=== PATIENT | female | born 1965 | race Hispanic/Latino ===

== ENCOUNTER → 2018-06-25 | Day surgery (SDC) | payer BC ==
[~2018-06-25] MED LIST: ALLEGRA D PO; FENTANYL CITRATE/PF 100MCG/2 ML INJ ONE; IBUPROFEN200 MG PO; LIDOCAINE HCL 2% LOCAL INJ 5 ML SDV VIAL INJ ONE; LISINOPRIL10 MG PO; LORATADINE PO; MIDAZOLAM HCL 2 MG/2 ML VIAL ONE; PANTOPRAZOLE SO40 MG PO; PRAVACHOL40 MG PO; PROPOFOL IV EMULSION 10 MG/ML 50 ML VIAL ONE; SYNTHROID50 MCG PO; VICTOZA 2-0.6 MG/0.1 SQ
--- OUTSIDE RECORDS SUMMARY | 2018-06-25 07:36 | XMS REPORT ---
Author Author Yunier Ervin Organization [employer] Address Unknown Phone Unavailable Care Team Providers Care Paleobotanist Name Role Phone Yunier Ervin CP Unavailable Allergies No Known Allergies Problems Problem Type Condition Code Onset Dates Condition Status Problem OBIE (obstructive sleep apnea) G47.33 Active Medications No Known Medications Results No Known Results Summary Purpose [employer] Submission
--- OUTSIDE RECORDS SUMMARY | 2018-06-25 07:36 | XMS REPORT | Continuity of Care Document ---
Author Author [facility] Address Unknown Phone Unavailable Problems Problem Status Onset Date Classification Date Reported Comments Source OBIE Active Problem 02/28/2018 [facility] Chest tightness Active Diagnosis 02/22/2018 [facility] Palpitation Active Diagnosis 02/22/2018 [facility] Pre-operative clearance Active Diagnosis 02/22/2018 [facility] SOB Active Diagnosis 02/22/2018 [facility] Medications Medication Details Route Status Patient Instructions Ordering Provider Order Date Source LEVOTHYROXINE ONE TABLET NA Active 0.5 ONCE A DAY [facility] Metformin HCl 1 tablet with meals Orally Active 500 MG Orally Twice a day [facility] Allergies, Adverse Reactions, Alerts Substance Category Reaction Severity Reaction type Status Date Reported Comments Source N.K.D.A. Adverse Reaction Info Not Available Adverse Reaction Active 02/19/2018 [facility] Immunizations Immunization Date Given Site Status Last Updated Comments Source Results Order Name Results Value Reference Range Date Interpretation Comments Source Vital Signs Vital Sign Value Date Comments Source Weight 234.4 02/19/2018 [facility] Height 60 02/19/2018 [facility] Heart Rate 88 02/19/2018 [facility] Diastolic (mm Hg) 82 02/19/2018 [facility] Systolic (mm Hg) 142 02/19/2018 [facility] Encounters Location Location Details Encounter Type Encounter Number Reason For Visit Attending Provider ADM Date DC Date Status Source Procedures Procedure Code Date Perfomer Comments Source
--- OUTSIDE RECORDS SUMMARY | 2018-06-25 07:36 | XMS REPORT ---
Author Author Yunier Ervin Organization [employer] Address Unknown Phone Unavailable Care Team Providers Care Political Cartoonist Name Role Phone Yunier Ervin CP Unavailable Allergies, Adverse Reactions, Alerts Substance Reaction Event Type N.K.D.A. Info Not Available Non Drug Allergy Problems Problem Type Condition Code Onset Dates Condition Status Assessment Chest tightness R07.89 Active Assessment Palpitation R00.2 Active Problem OBIE (obstructive sleep apnea) G47.33 Active Assessment OBIE (obstructive sleep apnea) G47.33 Active Assessment Pre-operative clearance Z01.818 Active Assessment SOB (shortness of breath) R06.02 Active Medications Medication Code System Code Instructions Start Date End Date Status Dosage LEVOTHYROXINE NDC 0 0.5 ONCE A DAY Active ONE TABLET Metformin HCl NDC 12176905937 500 MG Orally Twice a day Active 1 tablet with meals Vital Signs Date/Time: February 19, 2018 BMI 45.77 Index Weight 234.4 lbs Height 60 in Cardiac Monitoring Heart Rate 88 /min Blood Pressure Diastolic 82 mm Hg Blood Pressure Systolic 142 mm Hg Results No Known Results Summary Purpose [employer] Submission
--- OUTSIDE RECORDS SUMMARY | 2018-06-25 07:36 | XMS REPORT | Clinical Summary ---
Author Author [facility] Organization [facility] Address Unknown Phone Unavailable Care Team Providers Care Warper Creeler Name Role Phone Rico Feliciano MD PCP Allergies Active Allergy Reactions Severity Noted Date Comments Pseudoephedrine Tannate Hives 01/30/2017 Fluticasone Itching 01/30/2017 Current Medications Prescription Sig. Disp. Refills Start End Date Status Date naproxen (NAPROSYN) 500 TAKE 1 TABLET (500 MG) BY 0 01/06/20 Active MG tablet MOUTH 2 TIMES PER DAY X 5 17 DAYS. metFORMIN (GLUCOPHAGE) Take 2 tablets (1,000 mg 120 tablet 3 01/31/20 01/31/20 500 mg tablet total) by mouth 2 (two) 17 18 times a day with meals. Active Problems Problem Noted Date Uncontrolled type 2 diabetes mellitus without complication, without 01/30/2017 long-term current use of insulin (HCC) Family History Medical History Relation Name Comments No Known Problems Brother No Known Problems Father Diabetes Maternal Grandmother Diabetes Mother Diabetes Sister No Known Problems Sister Relation Name Status Comments Brother Alive Father Alive Maternal Grandmother Alive Mother Alive Sister Alive Sister Alive Social History Tobacco Use Types Packs/Day Years Used Date Never Smoker Smokeless Tobacco: Never Used Alcohol Use Drinks/Week oz/Week Comments Yes Sex Assigned at Date Recorded Not on file Last Filed Vital Signs Not on file Plan of Treatment Health Maintenance Due Date Last Done Comments DIABETIC FOOT EXAM 01/23/1974 DIABETIC RETINAL EYE EXAM 01/23/1974 URINE MICROALBUMIN 01/23/1974 CERVICAL CANCER SCREENING 01/23/1985 BREAST CANCER SCREENING 01/23/2014 COLON CANCER SCREENING 01/23/2014 SHINGRIX VACCINE (#1) 01/23/2014 INFLUENZA VACCINE 04/09/2018 Results Not on fileafter 06/24/2017 Insurance Payer Benefit Subscriber ID Type Phone Address Plan / Group BCBS BCBS xxxxxxxxxxxx PPO CHOICE PPO/[employer] PPO
[2018-06-25 09:51] VITALS: BP 132/79
== END | disposition home or self-care (01) ==
LOC: OR 07:34
PROVIDERS: ATTEND Internal Medicine Gastroenterology
DX: K29.50 Unspecified chronic gastritis without bleeding (principal); K21.0 Gastro-esophageal reflux disease with esophagitis; K44.9 Diaphragmatic hernia without obstruction or gangrene; K57.30 Diverticulosis of large intestine without perforation or abscess without bleeding; K64.4 Residual hemorrhoidal skin tags; Z71.3 Dietary counseling and surveillance; E11.9 Type 2 diabetes mellitus without complications; E66.01 Morbid (severe) obesity due to excess calories; G47.33 Obstructive sleep apnea (adult) (pediatric); I10 Essential (primary) hypertension; Z68.41 Body mass index [BMI] 40.0-44.9, adult
CPT/HCPCS: 36415; 43239; 45378; 82948; J2001; J2250; 43235